=== PATIENT | male | born 1990 | race Caucasian/White ===

== ENCOUNTER 2018-11-17 15:30 | Emergency (ER) | payer OTHER ==
[~2018-11-17] VITALS: Ht 162.6 cm; Wt 93.9 kg
[2018-11-17 15:50] VITALS: Ht 162.6 cm; Wt 93.9 kg
[2018-11-17 18:23] VITALS: BP 138/94
== END 2018-11-17 18:23 | disposition home or self-care (01) ==
LOC: ED 15:30
DX: S43.005A Unspecified dislocation of left shoulder joint, initial encounter (principal); X50.0XXA Overexertion from strenuous movement or load, initial encounter; Y93.89 Activity, other specified; Y92.89 Other specified places as the place of occurrence of the external cause; Y99.8 Other external cause status
CPT/HCPCS: J3490; Q0092